=== PATIENT | female | born 1990 | race American Indian/Alaskan Native ===

== ENCOUNTER 2019-09-27 10:45 | Inpatient (IN) | payer OTHER ==
[~2019-09-27] VITALS: Ht 154.9 cm; Wt 60.3 kg
[2019-09-27] MEDS ORDERED: PRENATAL + DHA1 EAC1 PO (22:00)
== END 2019-09-29 16:55 | disposition home or self-care (01) | DRG 833 ==
LOC: OBS/DEL 10:45 → OB/GYN 18:20 → LDR 18:20 → OB/GYN 09-28 12:06
PROVIDERS: ADMIT Obstetrics & Gynecology; ATTEND Obstetrics & Gynecology
PROC: BY4CZZZ Ultrasonography of Second Trimester, Single Fetus (ICD-10-PCS; principal; 2019-09-27)
PROC: 4A1HXCZ Monitoring of Products of Conception, Cardiac Rate, External Approach (ICD-10-PCS; 2019-09-27)
DX: O46.8X2 Other antepartum hemorrhage, second trimester (principal); O26.842 Uterine size-date discrepancy, second trimester; Z3A.23 23 weeks gestation of pregnancy